=== PATIENT | female | born 1970 | race Caucasian/White ===

== ENCOUNTER → 2017-03-26 | Outpatient (CLI) | payer BC ==
[~2017-03-26] MED LIST: FERR1TAB23 PO
--- NOTE | 2017-03-27 15:02 | MAMMOGRAPHY REPORT ---
BILATERAL DIGITAL SCREENING MAMMOGRAM TOMOSYNTHESIS WITH CAD: 03/26/2017 CLINICAL HISTORY: Routine screening. Patient has no complaints. TECHNIQUE: Breast tomosynthesis in addition to standard 2D mammography was performed. Current study was also evaluated with a Computer Aided Detection (CAD) system. COMPARISON: Comparison is made to exam dated: 11/13/2014 mammogram - [facility]. BREAST COMPOSITION: The tissue of both breasts is heterogeneously dense, which may obscure small ma sses. FINDINGS: No suspicious masses, calcifications, or areas of architectural distortion are noted [facility]. There has been no significant interval change compared to prior exams. IMPRESSION: ACR BI-RADS CATEGORY 1: NEGATIVE There is no mammographic evidence of malignancy. A 1 year screening mammogram is recommended. The p atient will receive written notification of the results. Approximately 10% of breast cancers are not detected with mammography. A negative mammographic repor t should not delay biopsy if a clinically suggestive mass is present. Gertrudis Meza M.D. ah/:03/27/2017 07:42:37 Consumer Marketing Manager: Britta RODRIGUEZ(R)(M), [facility] letter sent: Normal 1/2 BI-RADS Code: ACR BI-RADS Category 1: Negative
== END | disposition home or self-care (01) ==
LOC: C.MAMM 09:44
PROVIDERS: ATTEND Nurse Practitioner Family
DX: Z12.31 Encounter for screening mammogram for malignant neoplasm of breast (principal)

== ENCOUNTER → 2017-06-02 | Outpatient (CLI) | payer BC ==
--- NOTE | 2017-06-02 14:31 | DIAGNOSTIC IMAGING REPORT ---
LEFT VENOUS DOPP LOWER EXT UNILAT CLINICAL HISTORY: LEFT LEG PAIN edema TECHNIQUE: Venous Doppler COMPARISON STUDY: 03/12/2015 FINDINGS: Negative study IMPRESSION: Negative study The above report was generated using voice recognition software. It may contain grammatical, syntax or spelling errors. Electronically signed by: Damian Soto M.D. 06/02/2017 2:30 PM Dictated Date/Time: 06/02/2017 2:30 PM
== END | disposition home or self-care (01) ==
LOC: C.ULTR 14:00
PROVIDERS: ATTEND Student in an Organized Health Care Education/Training Program
DX: M79.605 Pain in left leg (principal); R60.0 Localized edema

== ENCOUNTER → 2017-06-30 | Day surgery (SDC) | payer BC ==
[2017-06-29 15:19] VITALS: BMI 47.0
[~2017-06-30] VITALS: Ht 167.6 cm; Wt 131.8 kg
[2017-06-30 12:14] VITALS: Ht 167.6 cm; Wt 131.8 kg
[2017-06-30 12:20] VITALS: BP 133/91; PULSE 85; TEMP 36.6; O2SAT 97
--- NOTE | 2017-07-03 14:39 | OPERATIVE REPORT ---
DATE OF OPERATION: 06/30/2017 PROCEDURE: Hydrogen breath test for lactose intolerance. DESCRIPTION OF PROCEDURE: The patient presented to the endoscopy center for hydrogen breath test for lactose intolerance to evaluate her for diarrhea. The patient was given 25 grams of lactose and hydrogen levels and CO2 levels were measured at 60-minute intervals for 3 hours. The patient's baseline hydrogen was 1, CO2 was 4.2, which stayed within that range through the entire procedure. Her hydrogen levels went from 0, 4, 3 and 1 during that time period. She did have a small amount of diarrhea after 2 hours, but otherwise was asymptomatic. IMPRESSION: A negative test for lactose intolerance. I attest to the content of the Intraoperative Record and any orders documented therein. Any exception s are noted below.
== END | disposition home or self-care (01) ==
LOC: C.GI 11:38
PROVIDERS: ATTEND Internal Medicine Gastroenterology
DX: R19.7 Diarrhea, unspecified (principal)

== ENCOUNTER → 2018-01-13 | Outpatient (CLI) | payer OTHER ==
--- NOTE | 2018-01-13 17:46 | DIAGNOSTIC IMAGING REPORT ---
MRI OF THE BRAIN WITHOUT CONTRAST CLINICAL HISTORY: R20.2 HEADACHES, RIGHT ARM AND LEG NUMBNESS. COMPARISON STUDY: None. FINDINGS: Sagittal T1, axial diffusion, proton density and T2 weighted axial, coronal FLAIR, and axial T1-weighted images were acquired. No intra or extra-axial mass lesions are visualized Axial diffusion-weighted images reveal no evidence of acute or subacute infarction. There is no evidence of ventricular dilatation. Proton density T2-weighted and FLAIR images reveal minimal foci of increased T2 signal within the right frontal white matter. There are no abnormal flow voids. IMPRESSION: 1. No acute intracranial findings 2. No evidence of intracranial mass on this noncontrast study 3. No evidence of acute or subacute infarction 4. There are few nonspecific foci of increased T2 and FLAIR signal within the white matter Electronically signed by: Dmitri Banks M.D. 01/13/2018 5:45 PM Dictated Date/Time: 01/13/2018 5:43 PM
== END | disposition home or self-care (01) ==
LOC: C.MRI 16:57
PROVIDERS: ATTEND Family Medicine
DX: R20.2 Paresthesia of skin (principal); R93.0 Abnormal findings on diagnostic imaging of skull and head, not elsewhere classified